=== PATIENT | male | born 1970 | race Caucasian/White ===

== ENCOUNTER 2018-01-24 10:36 | Inpatient (IN) | payer BC ==
[~2018-01-24 10:36] MED LIST: LIDOCAINE 2% INJ 100 MG/5 ML SDV (FOR ANES.) As Ordered; MIDAZOLAM INJ 2 MG/2 ML VIAL (J2250) As Ordered; ONDANSETRON 4MG/2ML VIAL (J2405) As Ordered; PROPOFOL 200 MG/20 ML VIAL As Ordered; ROCURONIUM BROMIDE 50 MG/5 ML VIAL As Ordered; dexameTHASONE 4 MG/ML 1ML VIAL (J1100) As Ordered; fentaNYL 250 MCG/5 ML INJECTION (J3010) As Ordered
[2018-01-24] MEDS: PERCOCET 5MG/325MG TAB PO (11:33)
[2018-01-24] MEDS: LR 1,000 ML IV ×3 (11:33→16:45)
[2018-01-24] MEDS: GABAPENTIN 300 MG CAP PO (11:33)
[2018-01-24] MEDS ORDERED: methylPREDNISolone 500 MG VIAL (J2930) As Ordered (11:37)
[2018-01-24 11:58] LABS: BEDSIDE GLUCOSE 93 MG/DL (70-105)
[2018-01-24] MEDS ORDERED: SEVOFLURANE INHAL SOLN 250 ML BTL As Ordered (12:11)
[2018-01-24] MEDS: methylPREDNISolone 500 MG, VIAL MATE ADAPTER 1 EACH in D5W 250 ML IV (12:30)
[2018-01-24] MEDS: BACITRACIN PWD 50,000 UNITS VIAL As Ordered (14:06)
[2018-01-24] MEDS: THROMBIN SOLN 20,000 UNITS KIT As Ordered (14:07)
[2018-01-24] MEDS ORDERED: NEOSTIGMINE 10 MG/10 ML VIAL (J2710) As Ordered ×2 (14:20→16:47)
[2018-01-24] MEDS ORDERED: GLYCOPYRROLATE INJ 0.2 MG/ML 2 ML VIAL As Ordered (14:20)
[2018-01-24] MEDS ORDERED: HYDROmorphone HCL 2 MG/ML 1ML VIAL (J1170) As Ordered (14:21)
[2018-01-24] MEDS ORDERED: ROCURONIUM BROMIDE 50 MG/5 ML VIAL As Ordered (14:21)
[2018-01-24] MEDS: LIDOCAINE W/EPINEPHRINE 1% 20ML VIAL As Ordered (15:14)
[2018-01-24] MEDS ORDERED: fentaNYL 100 MCG/2 ML INJECTION (J3010) IV (16:15)
[2018-01-24] MEDS ORDERED: HYDROmorphone HCL 1 MG/ML SYRINGE (J1170) IV (16:15)
[2018-01-24] MEDS ORDERED: ONDANSETRON 4MG/2ML VIAL (J2405) IV (16:15)
[2018-01-24] MEDS ORDERED: HYDROmorphone HCL 2 MG/ML 1ML VIAL (J1170) IV ×2 (16:30)
[2018-01-24] MEDS ORDERED: ACETAMINOPHEN TAB 650MG DOSE (2X325MG) PO (16:45)
[2018-01-24] MEDS: **UNRESOLVED NON-FORMULARY MED ORDER XX (20:14)
[2018-01-24 21:26] LABS: BEDSIDE GLUCOSE 215 MG/DL (70-105)
[2018-01-25] MEDS: **UNRESOLVED NON-FORMULARY MED ORDER XX (00:01)
[2018-01-25] MEDS: PERCOCET 5MG/325MG TAB PO ×2 (01:33→08:35)
[2018-01-25] MEDS: LR 1,000 ML IV (02:14)
[2018-01-25] MEDS: buPROPion **XL** TABLET 150MG (WELLBUTRIN XL) PO (08:34)
[2018-01-25] MEDS: METAMUCIL (PSYLLIUM) PACKET PO (08:36)
== END 2018-01-25 11:00 | disposition home or self-care (01) | DRG 321 ==
LOC: M OR 10:36 → M MS5PR 17:15
PROVIDERS: Orthopaedic Surgery
PROC: 0RG2070 Fusion of 2 or more Cervical Vertebral Joints with Autologous Tissue Substitute, Anterior Approach, Anterior Column, Open Approach (ICD-10-PCS; principal; 2018-01-24 12:30)
PROC: 0RB30ZZ Excision of Cervical Vertebral Disc, Open Approach (ICD-10-PCS; 2018-01-24 12:30)
DX: M48.02 Spinal stenosis, cervical region (principal); M50.021 Cervical disc disorder at C4-C5 level with myelopathy; E11.9 Type 2 diabetes mellitus without complications; E78.00 Pure hypercholesterolemia, unspecified; F41.9 Anxiety disorder, unspecified; Z79.4 Long term (current) use of insulin; Z79.899 Other long term (current) drug therapy